=== PATIENT | female | born 1930 | race Caucasian/White ===

== ENCOUNTER 2017-01-01 09:26 | Emergency (ER) | payer MEDICARE ==
[~2017-01-01] VITALS: Ht 154.9 cm; Wt 50.8 kg
[~2017-01-01 09:26] MED LIST: AMLO10TA4 PO; ASPI-605 PO; CALC600T14 PO; ERGO400C; FLAX1000 PO; MULT1TAB PO; NIFE60TA72 PO; OMEG-8 PO; OMEP20CA4 PO; SIMV20TA6 PO; UBID1CAP PO; VALS80TA2 PO
--- NOTE | 2017-01-01 10:26 | NUR ---
PT WAS EVALUATED BY DR APONTE. PT WAS D/C TO HOME. D/C INSTRUCTIONS GIVEN TO THE PT.
[2017-01-01 10:27] VITALS: BP 135/81
== END 2017-01-01 10:31 | disposition home or self-care (01) ==
LOC: ER 09:26
DX: R13.10 Dysphagia, unspecified (principal); I10 Essential (primary) hypertension; K21.9 Gastro-esophageal reflux disease without esophagitis; Z79.82 Long term (current) use of aspirin
CPT/HCPCS: 99281; A4663